=== PATIENT | female | born 1985 | race African-American/Black ===

== ENCOUNTER 2017-06-11 21:00 | Emergency (ER) | payer OTHER, MEDICAID ==
[~2017-06-11] VITALS: Ht 170.2 cm; Wt 135.0 kg
[~2017-06-11 21:00] MED LIST: DIPH50TA PO; PRED20 PO
[2017-06-11 21:45] VITALS: BP 161/74; PULSE 83; RESP 16; TEMP 98.6; O2SAT 100
== END 2017-06-11 22:11 | disposition left against medical advice (07) ==
LOC: NED 21:00
DX: Z04.1 Encounter for examination and observation following transport accident (principal)
CPT/HCPCS: 99281